=== PATIENT | female | born 1945 | race Caucasian/White ===

== ENCOUNTER 2024-05-23 16:03 | Inpatient (IN) | payer OTHER ==
[~2024-05-23] VITALS: Ht 147.3 cm; Wt 75.0 kg
[2024-05-23 16:09] VITALS: BP 106/34
[2024-05-23] MEDS ORDERED: TRAMADOL HCL50 MG PO (16:19)
[2024-05-23] MEDS ORDERED: RIVASTIGMINE TAR6 M1 PO (16:21)
[2024-05-23] MEDS ORDERED: SEROQUEL50 MG PO (16:21)
[2024-05-23] MEDS ORDERED: AZELASTINE HYDRO6 M1 INH (16:24)
[2024-05-23] MEDS ORDERED: GLIPIZIDE5 MG PO (16:25)
[2024-05-23] MEDS ORDERED: KLONOPIN1 M1 PO (16:26)
[2024-05-23 17:10] LABS: BASO # 0.1 10*3/uL (0.0-0.1); BASO % 0.8 % (0.0-1.0); EOS # 0.3 10*3/uL (0.0-0.4); HEMATOCRIT 43.6 % (37.0-47.0); LYMPH # 1.9 10*3/uL (1.3-4.4); LYMPH % 22.4 % (27.0-41.0); MEAN CELL VOLUME 93.2 fl (81.0-99.0); MEAN CORPUSCULAR HGB 28.6 pg (27.0-31.0); MEAN CORPUSCULAR HGB CONC 30.7 g/dl (33.0-37.0); MEAN PLATELET VOLUME 10.8 fl (9.6-12.3); MONO # 0.9 10*3/uL (0.1-1.0); MONO % 10.5 % (3.0-9.0); NEUT # 5.2 10*3/uL (2.3-7.9); NEUT % 62.8 % (47.0-73.0); PLATELET COUNT AUTOMATED 207 10*3/uL (130-400); RED BLOOD COUNT 4.68 10*6/uL (4.10-5.10); RED CELL DISTRI WIDTH 13.8 % (0-14.5); WHITE BLOOD COUNT 8.3 10*3/uL (4.8-10.8)
[2024-05-23 17:29] LABS: ALKALINE PHOSPHATASE 96 U/L (46-116); BUN 22 mg/dl (9-23); CHLORIDE 105 mmol/L (98-107); POTASSIUM 4.4 mmol/L (3.4-5.1); SGPT/ALT 25 U/L (5-49)
[2024-05-23 17:30] LABS: ETHYL ALCOHOL < 3.0 mg/dl (<3)
[2024-05-23] MEDS ORDERED: Midazolam Hydrochloride 5 MG/5 ML VIAL IV ONE (17:45)
[2024-05-23 18:00] LABS: BILIRUBIN Negative (Negative); BLOOD Negative (Negative); CLARITY Clear (Clear); COLOR Yellow (Yellow); GLUCOSE Negative (Negative); KETONE Trace (Negative); LEUKO ESTERASE 1+ (Negative); NITRITE Negative (Negative); PH 5.5 (4.5-8.0); SPECIFIC GRAVITY >= 1.030 (1.001-1.030)
[2024-05-23 18:11] LABS: URINE AMPHETAMINES Negative (1000ng/ml); URINE BARBITURATES Negative (200ng/ml); URINE BENZODIAZEPINES Negative (200ng/ml); URINE CANNABINOIDS (THC) Negative (50ng/ml); URINE COCAINE Negative (300ng/ml); URINE METHADONE Negative (300ng/ml); URINE OPIATES Negative (300ng/ml); URINE PHENCYCLIDINE Negative (25ng/ml)
[2024-05-23] MEDS ORDERED: VITAMIN D31250 MC1 PO (18:11)
[2024-05-23] MEDS ORDERED: METFORMIN HYDR750 MG PO (18:12)
[2024-05-23] MEDS ORDERED: ZESTRIL10 MG PO (18:13)
[2024-05-23] MEDS ORDERED: LEVOTHYROXINE112 MC1 PO (18:13)
[2024-05-23] MEDS ORDERED: MONTELUKAST SOD10 MG PO (18:16)
[2024-05-23] MEDS ORDERED: PREVAGEN PO (18:18)
[2024-05-23] MEDS ORDERED: SENNA-S TABLET1 EACH PO (18:19)
[2024-05-23 18:39] LABS: BACTERIA 1+; MUCOUS 1+; YEAST 1+
[2024-05-23] MEDS ORDERED: OCUSOFT LID SC1 EACH T (18:40)
[2024-05-23] MEDS ORDERED: BAYER ASPIRIN C81 MG PO (18:41)
[2024-05-23 18:42] VITALS: BP 113/58
[2024-05-23] MEDS ORDERED: ATORVASTATIN CA40 M1 PO (18:42)
[2024-05-23] MEDS ORDERED: LUMIGAN50 DRP OPH (18:43)
[2024-05-23 19:04] VITALS: BP 114/49
[2024-05-23] MEDS ORDERED: Ziprasidone Mesylate 20 MG VIAL IM PRN (20:25)
[2024-05-23] MEDS ORDERED: LORazepam 2 MG/ML VIAL IM PRN (20:25)
[2024-05-23] MEDS ORDERED: LORazepam 1 MG TAB PO PRN (20:25)
[2024-05-23] MEDS ORDERED: Water, Sterile 10 ML VIAL IM PRN (20:30)
[2024-05-23] MEDS ORDERED: MG-AL HYDROXIDE/SIMETICONE 30 ML UDC PO PRN (20:45)
[2024-05-23] MEDS ORDERED: Magnesium Hydroxide 30 ML UDC PO PRN (20:45)
[2024-05-23] MEDS ORDERED: ACETAMINOPHEN 325 MG TAB PO PRN (20:45)
[2024-05-23] MEDS ORDERED: Menthol/Zinc Oxide 4 GM THIN T SCH (21:00)
[2024-05-23] MEDS ORDERED: clonAZEPAM 0.5 MG TAB PO SCH (21:00)
[2024-05-23] MEDS ORDERED: BREXPIPRAZOLE 1 MG TABLET PO SCH (21:00)
[2024-05-23 21:15] VITALS: BP 126/61
[2024-05-24] MEDS ORDERED: Levothyroxine Sodium 112 MCG TAB PO SCH (06:00)
[2024-05-24] MEDS ORDERED: METFORMIN 750 MG PO SCH (07:30)
[2024-05-24] MEDS ORDERED: glipiZIDE 5 MG TAB PO SCH (07:30)
[2024-05-24 08:00] VITALS: BP 143/57
[2024-05-24 08:05] LABS: BASO # 0.1 10*3/uL (0.0-0.1); BASO % 1.1 % (0.0-1.0); EOS # 0.3 10*3/uL (0.0-0.4); EOS % 3.3 % (1.0-4.0); HEMATOCRIT 41.8 % (37.0-47.0); LYMPH # 1.6 10*3/uL (1.3-4.4); LYMPH % 21.4 % (27.0-41.0); MEAN CELL VOLUME 90.9 fl (81.0-99.0); MEAN CORPUSCULAR HGB 28.9 pg (27.0-31.0); MEAN CORPUSCULAR HGB CONC 31.8 g/dl (33.0-37.0); MEAN PLATELET VOLUME 10.6 fl (9.6-12.3); MONO # 0.8 10*3/uL (0.1-1.0); MONO % 10.5 % (3.0-9.0); NEUT # 4.8 10*3/uL (2.3-7.9); NEUT % 63.3 % (47.0-73.0); PLATELET COUNT AUTOMATED 211 10*3/uL (130-400); RED CELL DISTRI WIDTH 13.6 % (0-14.5); WHITE BLOOD COUNT 7.5 10*3/uL (4.8-10.8)
[2024-05-24] MEDS ORDERED: hydrOXYzine pamoate 25 MG CAP PO PRN (08:25)
[2024-05-24 08:44] LABS: ALKALINE PHOSPHATASE 100 U/L (46-116); BUN 19 mg/dl (9-23); CHLORIDE 103 mmol/L (98-107); CHOLESTEROL 137 mg/dL (<200); LDL CHOLESTEROL 72 mg/dL (9-159); POTASSIUM 4.7 mmol/L (3.4-5.1); SGPT/ALT 28 U/L (5-49); TOTAL PROTEIN 6.7 gm/dL (6.0-8.0); TRIGLYCERIDES 89 mg/dl (<150)
[2024-05-24] MEDS ORDERED: Azelastine Hydrochloride 30 ML NASAL SPRAY NAS SCH (09:00)
[2024-05-24] MEDS ORDERED: Rivastigmine Tartrate 3 MG CAP PO SCH (09:00)
[2024-05-24] MEDS ORDERED: Docusate Sodium/Senna 1 TAB TAB PO SCH (09:00)
[2024-05-24] MEDS ORDERED: LISINOPRIL 10 MG TAB PO SCH (09:00)
[2024-05-24] MEDS ORDERED: ASPIRIN, CHEWABLE 81 MG TAB PO SCH (09:00)
[2024-05-24 09:01] LABS: VALPROIC ACID (DEPAKENE) < 3.0 ug/ml (50-100)
[2024-05-24 09:07] LABS: VITAMIN D, 25-HYDROXY 75.1 ng/mL (30-100)
[2024-05-24 14:00] VITALS: BP 143/57
[2024-05-24 19:24] VITALS: BP 113/62
[2024-05-24] MEDS ORDERED: Montelukast Sodium 10 MG TAB PO SCH (21:00)
[2024-05-24] MEDS ORDERED: ATORVASTATIN CALCIUM 40 MG TABLET PO SCH (21:00)
[2024-05-24] MEDS ORDERED: Memantine Hydrochloride 5 MG TAB PO SCH (21:00)
[2024-05-24] MEDS ORDERED: Mirtazapine 15 MG TAB PO SCH (21:00)
[2024-05-24] MEDS ORDERED: BIMATOPROST 50 DRP BOT OPH SCH (21:00)
[2024-05-24] MEDS ORDERED: [UNRECOGNIZED DRUG - OTHER] T SCH (22:00)
[2024-05-25 08:00] VITALS: BP 112/85
[2024-05-25] MEDS ORDERED: clonAZEPAM 0.5 MG TAB PO SCH (09:00)
[2024-05-25] MEDS ORDERED: Memantine Hydrochloride 5 MG TAB PO SCH (09:00)
[2024-05-25 14:44] VITALS: BP 112/85
[2024-05-25] MEDS ORDERED: AQUAPHOR OINTMENT Base 50 GM TUBE T SCH (18:00)
[2024-05-25 20:00] VITALS: BP 122/74
[2024-05-25] MEDS ORDERED: clonAZEPAM 1 MG TAB PO SCH (21:00)
[2024-05-25] MEDS ORDERED: Prazosin Hydrochloride 1 MG CAP PO SCH (21:00)
[2024-05-25] MEDS ORDERED: BREXPIPRAZOLE 2 MG TABLET PO SCH (21:00)
[2024-05-26 08:00] VITALS: BP 149/68
[2024-05-26 14:00] VITALS: BP 149/68
[2024-05-26 18:54] VITALS: BP 142/80
[2024-05-26] MEDS ORDERED: Memantine Hydrochloride 10 MG TAB PO SCH (21:00)
[2024-05-27 08:00] VITALS: BP 98/45
[2024-05-27] MEDS ORDERED: Memantine Hydrochloride 5 MG TAB PO SCH (09:00)
[2024-05-27 20:00] VITALS: BP 120/50
[2024-05-27] MEDS ORDERED: Prazosin Hydrochloride 1 MG CAP PO SCH (21:00)
[2024-05-27] MEDS ORDERED: clonAZEPAM 0.5 MG TAB PO SCH (21:00)
[2024-05-27] MEDS ORDERED: Memantine Hydrochloride 10 MG TAB PO SCH (21:00)
[2024-05-28 07:41] VITALS: BP 122/55
[2024-05-28 07:55] LABS: BUN 12 mg/dl (9-23); CHLORIDE 105 mmol/L (98-107); POTASSIUM 5.7 mmol/L (3.4-5.1)
[2024-05-28] MEDS ORDERED: ERGOCALCIFEROL 50,000 IU CAP (1.25 MG) PO SCH (09:00)
[2024-05-28 09:26] LABS: BASO # 0.1 10*3/uL (0.0-0.1); BASO % 0.7 % (0.0-1.0); EOS # 0.1 10*3/uL (0.0-0.4); EOS % 1.6 % (1.0-4.0); HEMATOCRIT 39.9 % (37.0-47.0); LYMPH # 1.4 10*3/uL (1.3-4.4); LYMPH % 16.3 % (27.0-41.0); MEAN CELL VOLUME 88.5 fl (81.0-99.0); MEAN CORPUSCULAR HGB 29.7 pg (27.0-31.0); MEAN CORPUSCULAR HGB CONC 33.6 g/dl (33.0-37.0); MEAN PLATELET VOLUME 10.6 fl (9.6-12.3); MONO # 0.8 10*3/uL (0.1-1.0); MONO % 9.6 % (3.0-9.0); NEUT # 6.2 10*3/uL (2.3-7.9); NEUT % 71.6 % (47.0-73.0); PLATELET COUNT AUTOMATED 205 10*3/uL (130-400); RED BLOOD COUNT 4.51 10*6/uL (4.10-5.10); RED CELL DISTRI WIDTH 13.8 % (0-14.5); WHITE BLOOD COUNT 8.6 10*3/uL (4.8-10.8)
[2024-05-28 10:20] LABS: BUN 14 mg/dl (9-23); CHLORIDE 105 mmol/L (98-107)
[2024-05-28 10:34] LABS: POTASSIUM 4.4 mmol/L (3.4-5.1)
[2024-05-28 20:38] VITALS: BP 160/96
[2024-05-28] MEDS ORDERED: Doxycycline Hyclate 100 MG CAP PO SCH (21:00)
[2024-05-29 08:00] VITALS: BP 125/59
[2024-05-29] MEDS ORDERED: Dextromethorphan/Quinidine 20-10 mg cap PO SCH (09:00)
[2024-05-29] MEDS ORDERED: Menthol/Zinc Oxide 4 GM THIN T PRN (14:05)
[2024-05-29 20:00] VITALS: BP 129/57
[2024-05-29] MEDS ORDERED: NYSTATIN 15 GM BOT T SCH (21:00)
[2024-05-30 06:09] LABS: RPR REFLEX CHARGE CHG FOR REFLEX; TREPONEMA PALLIDUM AB Non Reactive (Non Reactive)
[2024-05-30 07:56] VITALS: BP 136/80
[2024-05-30] MEDS ORDERED: Dextromethorphan/Quinidine 20-10 mg cap PO SCH (09:00)
[2024-05-30 20:00] VITALS: BP 132/59
[2024-05-31 07:50] VITALS: BP 130/60
[2024-05-31 20:00] VITALS: BP 128/62
[2024-06-01 07:34] VITALS: BP 102/86
[2024-06-01 12:00] LABS: BILIRUBIN Negative (Negative); BLOOD 1+ (Negative); CLARITY Cloudy (Clear); COLOR Yellow (Yellow); GLUCOSE Negative (Negative); KETONE Trace (Negative); LEUKO ESTERASE 1+ (Negative); NITRITE Negative (Negative); SPECIFIC GRAVITY >= 1.030 (1.001-1.030)
[2024-06-01 12:14] LABS: BACTERIA 1+; YEAST 1+
[2024-06-01 20:00] VITALS: BP 112/73
[2024-06-01] MEDS ORDERED: BREXPIPRAZOLE 1 MG TABLET PO SCH (21:00)
[2024-06-02 08:00] VITALS: BP 145/51
[2024-06-02 20:00] VITALS: BP 116/51
[2024-06-03 08:00] VITALS: BP 125/58
[2024-06-03] MEDS ORDERED: FLUCONAZOLE 100 MG TAB PO SCH (11:30)
[2024-06-03 20:00] VITALS: BP 141/62
[2024-06-03] MEDS ORDERED: BREXPIPRAZOLE 2 MG TABLET PO SCH (21:00)
[2024-06-04 07:52] VITALS: BP 108/51
[2024-06-04 19:14] VITALS: BP 112/55
[2024-06-05 07:49] VITALS: BP 119/58
[2024-06-05 07:53] VITALS: BP 119/58
[2024-06-05] MEDS ORDERED: CLONAZEPAM0.5 M2 PO (10:16)
[2024-06-05] MEDS ORDERED: MEMANTINE HCL10 MG PO (10:16)
[2024-06-05] MEDS ORDERED: NEUDEXT PO (10:16)
[2024-06-05] MEDS ORDERED: MINIPRESS1 M1 PO (10:16)
[2024-06-05] MEDS ORDERED: MIRTAZAPINE15 M2 PO (10:16)
[2024-06-05] MEDS ORDERED: RIVASTIGMINE TAR3 M1 PO (10:16)
[2024-06-05] MEDS ORDERED: REXULTI2 MG PO (10:16)
== END 2024-06-05 13:05 | DRG 883 ==
LOC: ED 16:03 → 3N 18:55
PROVIDERS: Physician Assistant; Registered Nurse; ADMIT Psychiatry & Neurology Psychiatry; ATTEND Psychiatry & Neurology Psychiatry
PROC: GZHZZZZ Group Psychotherapy (ICD-10-PCS; principal; 2024-05-23)
PROC: GZ51ZZZ Individual Psychotherapy, Behavioral (ICD-10-PCS; 2024-05-23)
PROC: 0HBRXZZ Excision of Toe Nail, External Approach (ICD-10-PCS; 2024-05-24)
PROC: 0HBRXZZ Excision of Toe Nail, External Approach (ICD-10-PCS; 2024-05-24)
PROC: 0HBRXZZ Excision of Toe Nail, External Approach (ICD-10-PCS; 2024-05-24)
PROC: 0HBRXZZ Excision of Toe Nail, External Approach (ICD-10-PCS; 2024-05-24)
PROC: 0HBRXZZ Excision of Toe Nail, External Approach (ICD-10-PCS; 2024-05-24)
PROC: 0HBRXZZ Excision of Toe Nail, External Approach (ICD-10-PCS; 2024-05-24)
PROC: 0HBRXZZ Excision of Toe Nail, External Approach (ICD-10-PCS; 2024-05-24)
PROC: 0HBRXZZ Excision of Toe Nail, External Approach (ICD-10-PCS; 2024-05-24)
PROC: 0HBRXZZ Excision of Toe Nail, External Approach (ICD-10-PCS; 2024-05-24)
PROC: 0HBRXZZ Excision of Toe Nail, External Approach (ICD-10-PCS; 2024-05-24)
DX: F63.81 Intermittent explosive disorder (principal); E11.65 Type 2 diabetes mellitus with hyperglycemia; F33.3 Major depressive disorder, recurrent, severe with psychotic symptoms; F02.80 Dementia in other diseases classified elsewhere, unspecified severity, without behavioral disturbance, psychotic disturbance, mood disturbance, and anxiety; G30.9 Alzheimer's disease, unspecified; F43.10 Post-traumatic stress disorder, unspecified; E86.0 Dehydration; B35.1 Tinea unguium; L60.3 Nail dystrophy; F48.2 Pseudobulbar affect; I10 Essential (primary) hypertension; R82.71 Bacteriuria; E03.9 Hypothyroidism, unspecified; Z66 Do not resuscitate; Z51.5 Encounter for palliative care; Z88.1 Allergy status to other antibiotic agents; Z88.8 Allergy status to other drugs, medicaments and biological substances; Z79.82 Long term (current) use of aspirin; Z79.899 Other long term (current) drug therapy; Z79.84 Long term (current) use of oral hypoglycemic drugs; Z88.5 Allergy status to narcotic agent